=== PATIENT | female | born 1965 | race Caucasian/White ===

== ENCOUNTER 2023-08-16 05:35 | Emergency (ER) | payer MEDICAID, OTHER ==
[~2023-08-16] VITALS: Ht 162.6 cm; Wt 100.0 kg
[2023-08-16 06:04] VITALS: PULSE 0; RESP 0
== END 2023-08-16 06:09 ==
LOC: ER 05:35 → EDBD 05:35 → ER 06:09
DX: I46.9 Cardiac arrest, cause unspecified (principal)
CPT/HCPCS: 31500; 92950